=== PATIENT | female | born 1985 | race Caucasian/White ===

== ENCOUNTER 2016-06-30 14:24 | Emergency (ER) | payer SELFPAY ==
[~2016-06-30] VITALS: Ht 182.9 cm; Wt 109.3 kg
[2016-06-30] MEDS ORDERED: ZOLP-413 PO (14:58)
[2016-06-30] MEDS ORDERED: ONDANSETRON ODT 4 MG PO ONE (15:30)
[2016-06-30] MEDS ORDERED: ONDANSETRON ODT 4 MG ONE (15:45)
[2016-06-30 16:01] VITALS: BP 121/77
== END 2016-06-30 16:05 | disposition home or self-care (01) ==
LOC: ED 15:40
DX: S16.1XXA Strain of muscle, fascia and tendon at neck level, initial encounter (principal); V59.88XA Occupant (driver) (passenger) of pick-up truck or van injured in other specified transport accidents, initial encounter; Y93.89 Activity, other specified; Y99.9 Unspecified external cause status; Y92.89 Other specified places as the place of occurrence of the external cause
CPT/HCPCS: 99283; Q0162